=== PATIENT | male | born 1990 | race Hispanic/Latino ===

== ENCOUNTER 2018-06-20 19:32 | Emergency (ER) | payer OTHER ==
[2018-06-20] MEDS ORDERED: METOCLOPRAMIDE 10 MG TABLET ONE (19:45)
[2018-06-20] MEDS ORDERED: DIPHENHYDRAMINE HCL 25 MG CAPSULE ONE (19:46)
[2018-06-20] MEDS ORDERED: KETOROLAC TROMETHAMINE 30MG/ML ONE (19:46)
[2018-06-20 20:42] LABS: BILIRUBIN,URINE Negative (NEGATIVE); COLOR,URINE Yellow (YELLOW); GLUCOSE, URINE (UA) Negative (NEGATIVE); KETONES,URINE Negative (NEGATIVE); LEUKOCYTE ESTERASE ,URINE Trace (NEGATIVE); NITRATE,URINE Negative (NEGATIVE); OCCULT BLOOD,URINE Negative (NEGATIVE); PROTEIN,URINE Negative (NEGATIVE)
[2018-06-20 20:43] LABS: APPEARANCE,URINE CLOUDY (CLEAR)
[2018-06-20] MEDS ORDERED: CYCLOBENZAPRINE HCL 10 MG TABLET ONE (20:47)
[2018-06-20 20:50] LABS: AMPHET/METH SCREEN,URINE NEGATIVE (NEGATIVE); BARBITURATE SCREEN, URINE NEGATIVE (NEGATIVE); BENZODIAZEPINES SCREEN,URINE NEGATIVE (NEGATIVE); CANNABINOID SCREEN,URINE POSITIVE (NEGATIVE); COCAINE SCREEN,URINE NEGATIVE (NEGATIVE); OPIATE SCREEN,URINE NEGATIVE (NEGATIVE); PHENCYCLIDINE SCREEN,URINE NEGATIVE (NEGATIVE)
[2018-06-20 21:01] LABS: AMORPHOUS SEDIMENT,UR Moderate /LPF (None Seen); BACTERIA,URINE Few /HPF (None Seen); RBC,URINE None Seen /HPF (0-1); SQUAMOUS EPITHELIAL CELL,UR None Seen /HPF (0-2); WBC,URINE 0-1 /HPF (0-1)
== END 2018-06-20 21:28 | disposition home or self-care (01) ==
LOC: EDH 19:32
DX: G44.209 Tension-type headache, unspecified, not intractable (principal); M62.830 Muscle spasm of back; R09.81 Nasal congestion; Z88.0 Allergy status to penicillin; Z72.0 Tobacco use
CPT/HCPCS: 80305; 81001; 87804 ×2; 96372; 99284; J1885; Q0163